=== PATIENT | male | born 1945 | race Caucasian/White ===

== ENCOUNTER 2020-02-14 15:01 | Inpatient (IN) ==
[2020-02-14 16:45] LABS: Basophils % 0.3 %; Eosinophils # 0.3 K/mcL (0.0-0.6); Eosinophils % 3.7 %; Hematocrit 44.4 % (37.5-50.1); Hemoglobin 14.2 g/dL (12.9-16.9); Immature Granulocytes % 0.4 % (0-4); Lymphocytes # 1.5 K/mcL (0.6-4.6); Mean Corpuscular Hemoglobin 29.4 pg (28.0-33.3); Mean Corpuscular Volume 91.9 fL (83.0-100.0); Mean Platelet Volume 10.6 fL (9.4-12.4); Monocytes # 0.6 K/mcL (0.0-1.3); Monocytes % 8.5 %; Neutrophils # 4.4 K/mcL (1.6-8.9); Platelet Count 186 K/mcL (140-400); Red Blood Count 4.83 M/mcL (4.19-5.50); Red Cell Distribution Width 13.3 % (11.5-14.5); Segmented Neutrophils % 65.1 %; White Blood Count 6.7 K/mcL (4.3-11.1)
[2020-02-14 16:57] LABS: Alanine Aminotransferase 12 Units/L (7-52); Albumin 4.1 g/dL (3.5-5.7); Albumin/Globulin Ratio 1.5 (1.1-2.2); Alkaline Phosphatase 77 Units/L (34-104); Aspartate Amino Transferase 14 Units/L (13-39); BUN/Creatinine Ratio 13 (6-26); Bilirubin,Total 0.4 mg/dL (0.3-1.0); Blood Urea Nitrogen 18 mg/dL (8-23); Carbon Dioxide 27 mEq/L (23-29); Chloride 106 mEq/L (98-107); Globulin 2.7 g/dL (2.4-3.5); Glucose 162 mg/dL (70-105); Osmolality,Calculated 293 (280-300); Potassium 3.9 mEq/L (3.5-5.1); Sodium 139 mEq/L (136-145); Total Protein 6.8 g/dL (6.4-8.9); eGFR For African Americans > 60 (> 60); eGFR For Non-African Americans 52 (> 60)
[2020-02-14] MEDS ORDERED: Naloxone 0.4 MG/ML INJ IVP PRN (17:52)
[2020-02-14] MEDS ORDERED: Perflutren Lipid Microsphere 1.3 ML in 0.9 % Sodium Chloride 8.7 ML IVP PRN (17:54)
[2020-02-14] MEDS ORDERED: *HR* Dextrose 50 % in Water (Vial) 50 ML VIAL IVP PRN (18:41)
[2020-02-14] MEDS ORDERED: Dextrose Gel 15 GM/37.5 ML TUBE PO PRN ×2 (18:41)
[2020-02-14] MEDS ORDERED: D5% in Water 1,000 ML IVC PRN (18:41)
[2020-02-14] MEDS: Insulin LISPRO 300 UNITS/3 ML VIAL SQ SCH (20:06)
[2020-02-14] MEDS ORDERED: lisinopriL 5 MG TABLET PO ONE (20:52)
[2020-02-14] MEDS: Topiramate 25 MG TABLET PO SCH (21:02)
[2020-02-14] MEDS: Gabapentin 300 MG CAPSULE PO SCH (21:03)
[2020-02-14] MEDS: Aspirin Enteric Coated 81 MG Tablet PO SCH (21:07)
[2020-02-15 06:08] LABS: Basophils % 0.4 %; Eosinophils # 0.3 K/mcL (0.0-0.6); Eosinophils % 3.3 %; Hematocrit 45.3 % (37.5-50.1); Hemoglobin 14.3 g/dL (12.9-16.9); Immature Granulocytes % 0.3 % (0-4); Lymphocytes % 27.2 %; Mean Corpuscular HGB Conc 31.6 g/dL (31.6-35.5); Mean Corpuscular Hemoglobin 28.4 pg (28.0-33.3); Mean Corpuscular Volume 90.1 fL (83.0-100.0); Mean Platelet Volume 10.9 fL (9.4-12.4); Monocytes # 0.6 K/mcL (0.0-1.3); Neutrophils # 4.6 K/mcL (1.6-8.9); Platelet Count 181 K/mcL (140-400); Red Blood Count 5.03 M/mcL (4.19-5.50); Red Cell Distribution Width 13.5 % (11.5-14.5); Segmented Neutrophils % 60.8 %; White Blood Count 7.5 K/mcL (4.3-11.1)
[2020-02-15 06:23] LABS: BUN/Creatinine Ratio 13 (6-26); Blood Urea Nitrogen 17 mg/dL (8-23); Calcium 8.9 mg/dL (8.6-10.3); Carbon Dioxide 24 mEq/L (23-29); Chloride 108 mEq/L (98-107); Chol/HDL Ratio 4.3 (0-4.9); Cholesterol 130 mg/dL (< 200); Glucose 115 mg/dL (70-105); HDL Cholesterol 30 mg/dL (40-59); LDL Cholesterol,Calculated 72 mg/dL (< 100); Magnesium 1.9 mg/dL (1.6-2.6); Osmolality,Calculated 292 (280-300); Phosphorous 3.6 mg/dL (2.7-4.5); Potassium 3.8 mEq/L (3.5-5.1); Sodium 140 mEq/L (136-145); Triglycerides 139 mg/dL (< 150); eGFR For African Americans > 60 (> 60); eGFR For Non-African Americans 55 (> 60)
[2020-02-15] MEDS: lisinopriL 20 MG TABLET PO SCH ×2 (08:06→08:24)
[2020-02-15] MEDS: Gabapentin 300 MG CAPSULE PO SCH ×2 (08:24→20:35)
[2020-02-15] MEDS: Topiramate 25 MG TABLET PO SCH ×2 (08:24→20:35)
[2020-02-15] MEDS: Aspirin Enteric Coated 81 MG Tablet PO SCH (08:24)
[2020-02-15] MEDS: Insulin LISPRO 300 UNITS/3 ML VIAL SQ SCH ×3 (08:30→16:44)
[2020-02-15] MEDS: 0.9 % Sodium Chloride 1,000 ML IVC SCH (09:21)
[2020-02-15] MEDS: carvediloL 6.25 MG TABLET PO SCH (16:20)
[2020-02-15] MEDS: Acetaminophen 325 MG TABLET PO PRN ×2 (16:20→22:54)
[2020-02-16 04:42] LABS: Hematocrit 44.5 % (37.5-50.1); Hemoglobin 14.1 g/dL (12.9-16.9); Mean Corpuscular HGB Conc 31.7 g/dL (31.6-35.5); Mean Corpuscular Hemoglobin 28.5 pg (28.0-33.3); Mean Corpuscular Volume 90.1 fL (83.0-100.0); Platelet Count 186 K/mcL (140-400); Red Blood Count 4.94 M/mcL (4.19-5.50); Red Cell Distribution Width 13.5 % (11.5-14.5)
[2020-02-16 04:54] LABS: Calcium 9.2 mg/dL (8.6-10.3); Potassium 3.8 mEq/L (3.5-5.1)
[2020-02-16] MEDS: Insulin LISPRO 300 UNITS/3 ML VIAL SQ SCH ×3 (07:23→17:26)
[2020-02-16] MEDS: Aspirin Enteric Coated 81 MG Tablet PO SCH (07:26)
[2020-02-16] MEDS: Gabapentin 300 MG CAPSULE PO SCH ×2 (07:26→20:31)
[2020-02-16] MEDS: lisinopriL 20 MG TABLET PO SCH (07:28)
[2020-02-16] MEDS: Topiramate 25 MG TABLET PO SCH ×2 (07:28→20:31)
[2020-02-16] MEDS: carvediloL 6.25 MG TABLET PO SCH ×2 (07:28→17:30)
[2020-02-16] MEDS ORDERED: 0.9 % Sodium Chloride 1,000 ML IVC SCH (07:45)
[2020-02-16] MEDS ORDERED: Spironolactone 25 MG TABLET PO SCH (09:00)
[2020-02-16 12:32] LABS: BUN/Creatinine Ratio 16 (6-26); Blood Urea Nitrogen 21 mg/dL (8-23); Calcium 9.4 mg/dL (8.6-10.3); Carbon Dioxide 23 mEq/L (23-29); Chloride 108 mEq/L (98-107); Glucose 132 mg/dL (70-105); Osmolality,Calculated 297 (280-300); Potassium 3.8 mEq/L (3.5-5.1); Sodium 141 mEq/L (136-145); eGFR For African Americans > 60 (> 60); eGFR For Non-African Americans 52 (> 60)
[2020-02-16] MEDS ORDERED: Heparin 1,000 UNITS/500 mL 500 ML ONE ×2 (14:17→15:49)
[2020-02-16] MEDS ORDERED: ISOVUE-370 200 ML INFUS..BTL ONE ×2 (14:17→15:49)
[2020-02-16] MEDS ORDERED: *HR* Heparin 10,000 UNIT/10 ML VIAL ONE ×2 (14:17→15:49)
[2020-02-16] MEDS ORDERED: Nitroglycerin 1,000 MCG/10 ML VIAL IV ONE ×2 (14:17→15:49)
[2020-02-16] MEDS ORDERED: 0.9 % Sodium Chloride 2,000 ML ONE ×2 (14:17→15:48)
[2020-02-16] MEDS ORDERED: 0.9 % Sodium Chloride 2,000 ML IVC SCH (14:45)
[2020-02-16] MEDS ORDERED: *HR* FentaNYL (PF) 100 MCG/2 ML VIAL ONE (15:48)
[2020-02-16] MEDS ORDERED: *HR* Midazolam HCl 2 MG/2 ML VIAL ONE (15:48)
[2020-02-16] MEDS: Acetaminophen 325 MG TABLET PO PRN ×2 (17:29→20:31)
[2020-02-17 06:01] LABS: Calcium 9.4 mg/dL (8.6-10.3)
[2020-02-17 06:27] LABS: Hematocrit 45.5 % (37.5-50.1); Hemoglobin 14.9 g/dL (12.9-16.9); Mean Corpuscular HGB Conc 32.7 g/dL (31.6-35.5); Mean Corpuscular Hemoglobin 29.4 pg (28.0-33.3); Mean Corpuscular Volume 89.9 fL (83.0-100.0); Mean Platelet Volume 11.4 fL (9.4-12.4); Platelet Count 175 K/mcL (140-400); Red Blood Count 5.06 M/mcL (4.19-5.50); Red Cell Distribution Width 13.8 % (11.5-14.5); White Blood Count 8.1 K/mcL (4.3-11.1)
[2020-02-17] MEDS ORDERED: NON-FORMULARY MEDICATION 1 EACH EACH (Pantoprazole Sodium [Protonix] 40 MG) PO SCH (09:00)
[2020-02-17] MEDS ORDERED: lisinopriL 10 MG TABLET PO SCH (09:00)
[2020-02-17] MEDS: Aspirin Enteric Coated 81 MG Tablet PO SCH (10:18)
[2020-02-17] MEDS: Gabapentin 300 MG CAPSULE PO SCH (10:18)
[2020-02-17] MEDS: Topiramate 25 MG TABLET PO SCH (10:18)
[2020-02-17] MEDS: carvediloL 6.25 MG TABLET PO SCH (10:18)
[2020-02-17] MEDS: Insulin LISPRO 300 UNITS/3 ML VIAL SQ SCH (10:19)
[2020-02-17 15:00] VITALS: BP 153/80
== END 2020-02-17 16:14 | disposition home or self-care (01) | DRG 69 ==
LOC: 3BNU 15:01 → EMEROOARM 15:01 → SUATTDRO 17:30 → 3BNU 18:29 → SUATTDRO 02-16 15:00
PROVIDERS: ADMIT Family Medicine; ATTEND Internal Medicine